=== PATIENT | female | born 1980 | race Caucasian/White ===

== ENCOUNTER 2020-09-11 11:05 | Outpatient (CLI) | payer MEDICARE, SELFPAY ==
[2020-09-11 11:24] LABS: Basophils Absolute Auto 0.09 K/mm3 (0.00-0.10); Basophils Percent Auto 0.9 % (0.0-1.0); Eosinophils Absolute Auto 0.44 K/mm3 (0.02-0.50); Eosinophils Percent Auto 4.5 % (1.0-6.0); Hemoglobin 13.6 g/dL (12.0-15.0); Immature Granulocyte Absolute 0.07 K/mm3 (0.00-0.00); Immature Granulocyte Percent A 0.7 % (0.0-0.0); Lymphocytes Absolute Auto 3.59 K/mm3 (1.10-4.50); Lymphocytes Percent Auto 36.4 % (18.0-42.0); Mean Corpuscular HGB Conc 33.2 g/dL (32.0-36.0); Mean Corpuscular Hemoglobin 29.3 pg (27.0-31.0); Mean Corpuscular Volume 88.4 fL (78.0-102.0); Mean Platelet Volume 10.4 fl (9.2-11.8); Monocytes Absolute Auto 0.65 K/mm3 (0.10-0.90); Monocytes Percent Auto 6.6 % (2.0-11.0); Neutrophils Percent Auto 50.9 % (50.0-70.0); Platelet Count Result 335 K/mm3 (150-420); Red Blood Count 4.64 M/mm3 (4.20-5.40); Red Cell Distribution Width 13.3 % (11.6-14.4); White Blood Count 9.9 K/mm3 (4.8-10.8)
[2020-09-11 12:34] LABS: Alanine Aminotransferase 18 U/L (14-59); Albumin Level 3.5 g/dL (3.4-5.0); Alkaline Phosphatase 57 U/L (46-116); Anion Gap 9 mmol/L (8-16); Aspartate Amino Transferase 10 U/L (15-37); Bilirubin,Total 0.2 mg/dL (0.00-1.00); Blood Urea Nitrogen 11 mg/dL (7-18); Calcium 9.1 mg/dL (8.5-10.1); Carbon Dioxide 26 mmol/L (21-32); Chloride 105 mmol/L (98-108); Estimated Glomerular Filt Rate > 60; Free T4 Free Thyroxine 0.61 ng/dL (0.76-1.46); Glucose 97 mg/dL (70-99); Osmolality Calculated 289 mOsm/kg (285-295); Potassium 4.6 mmol/L (3.5-5.1); Sodium 140 mmol/L (136-145); Thyroid Stimulating Hormone 0.56 uIU/mL (0.36-3.74); Total Protein 7.2 g/dL (6.4-8.2)
[2020-09-13 11:27] LABS: Lithium 0.45 mmol/L (0.60-1.20)
== END 2020-09-11 11:06 | disposition home or self-care (01) ==
DX: F31.9 Bipolar disorder, unspecified (principal); Z79.899 Other long term (current) drug therapy
CPT/HCPCS: 36415; 80053; 80178; 84439; 84443; 85025

== ENCOUNTER 2022-01-27 12:38 | Outpatient (CLI) | payer OTHER, SELFPAY ==
[2022-01-27 13:03] LABS: Basophils Absolute Auto 0.09 K/mm3 (0.00-0.10); Basophils Percent Auto 0.7 % (0.0-1.0); Eosinophils Absolute Auto 0.67 K/mm3 (0.02-0.50); Eosinophils Percent Auto 4.9 % (1.0-6.0); Hematocrit 40.3 % (35.0-49.0); Hemoglobin 13.6 g/dL (12.0-15.0); Immature Granulocyte Absolute 0.06 K/mm3 (0.00-0.00); Immature Granulocyte Percent A 0.4 % (0.0-0.0); Lymphocytes Absolute Auto 4.23 K/mm3 (1.10-4.50); Lymphocytes Percent Auto 30.9 % (18.0-42.0); Mean Corpuscular HGB Conc 33.7 g/dL (32.0-36.0); Mean Corpuscular Hemoglobin 29.1 pg (27.0-31.0); Mean Corpuscular Volume 86.1 fL (78.0-102.0); Mean Platelet Volume 10.8 fl (9.2-11.8); Monocytes Absolute Auto 0.94 K/mm3 (0.10-0.90); Monocytes Percent Auto 6.9 % (2.0-11.0); Neutrophils Absolute Auto 7.7 K/mm3 (1.7-7.2); Neutrophils Percent Auto 56.2 % (50.0-70.0); Platelet Count Result 318 K/mm3 (150-420); Red Blood Count 4.68 M/mm3 (4.20-5.40); Red Cell Distribution Width 12.9 % (11.6-14.4); White Blood Count 13.7 K/mm3 (4.8-10.8)
[2022-01-27 13:12] LABS: Hemoglobin A1C 5.5 % (<5.7)
[2022-01-27 14:43] LABS: Cholesterol 157 mg/dL (0-200); Free T4 Free Thyroxine 0.79 ng/dL (0.76-1.46); HDL Direct 63 mg/dL (40-60); LDL Cholesterol Calculated 75 mg/dL (<130); Thyroid Stimulating Hormone 1.66 uIU/mL (0.36-3.74); Triglycerides 93 mg/dL (0-150); Vitamin B12 813 pg/mL (193-986)
[2022-01-30 11:31] LABS: Valproic Acid 72.2 mg/L (50.0-100.0)
[2022-01-30 15:11] LABS: Vitamin D 25 Hydroxy 20 ng/mL (30-100)
== END 2022-01-27 12:39 | disposition home or self-care (01) ==
LOC: CHSLAB 12:43
DX: F31.9 Bipolar disorder, unspecified (principal); Z79.899 Other long term (current) drug therapy
CPT/HCPCS: 36415; 80061; 80164; 80178; 82306; 82607; 83036; 84439; 84443; 85025

== ENCOUNTER 2023-06-15 12:16 | Emergency (ER) | payer OTHER, SELFPAY ==
[2023-06-15 12:16] VITALS: BP 104/67; PULSE 83; RESP 18; TEMP 36.7; O2SAT 98
--- NOTE | 2023-06-15 12:26 | ED.EAR ---
HPI - Ear Problem General Chief complaint: Ear Stated complaint: EAR PAIN Time Seen by Provider: 06/15/23 12:19 Source: patient Mode of arrival: ambulatory Limitations: no limitations History of Present Illness HPI Narrative: 42 years old white female came to the emergency room by private car complaining of left ear pain that started 3 days ago. Patient using Q-tip to clean her ear all the time. Patient denies history of diabetes or hypertension, history of bipolar and insomnia, tobacco use. She denies drinking or using drugs. Patient denies any fever, chills, nausea, vomiting, headache. Related Data Home Medications Medication Instructions Recorded Confirmed quetiapine 400 mg tablet (Seroquel) 400 mg PO BID 11/11/20 06/15/23 trazodone 100 mg tablet 100 mg PO QHS PRN Insomnia 11/11/20 06/15/23 clonidine HCl 0.1 mg tablet 0.1 mg PO TID 06/15/23 06/15/23 deutetrabenazine 6 mg tablet 6 mg PO DAILY 06/15/23 06/15/23 (Austedo) gabapentin 300 mg capsule 300 mg PO DAILY 06/15/23 06/15/23 Allergies Allergy/AdvReac Type Severity Reaction Status Date / Time Penicillins Allergy Anaphylaxis Verified 06/15/23 12:19 Review of Systems Review of Systems: All systems reviewed & are unremarkable except as noted in HPI and below Exam Narrative: General appearance: Well-developed, well-nourished Skin: Normal color Head: Normocephalic, nontraumatic Eyes: Clear conjunctiva ENT: Oropharynx normal,, nose normal , left ear exam showed severely narrowed ear canal, tender tragus, unable to check the tympanic membrane because of the pain and tightness of the ear canal. No surrounding lymphadenopathy, no erythema or discharge Neck: Supple, nontender Chest and respiratory: Airway patent, no respiratory distress, no accessory muscle use Heart: Regular rate/rhythm Abdomen: Soft, nontender, no organomegaly, quiet bowel sounds Vascular: Normal peripheral pulses, normal capillary refill. Musculoskeletal: Normal range of motion, nontender back Neurologic: Alert and oriented ?3, [employer] is normal as tested, no gross motor deficit Course Vital Signs Vital signs: Vital Signs Temperature 36.7 C 06/15/23 12:16 Pulse Rate 83 06/15/23 12:16 Respiratory Rate 18 06/15/23 12:16 Blood Pressure 104/67 06/15/23 12:16 Pulse Oximetry 98 06/15/23 12:16 Oxygen Delivery Room Air 06/15/23 12:16 Temperature 36.7 C 06/15/23 12:16 Pulse Rate 83 06/15/23 12:16 Respiratory Rate 18 06/15/23 12:16 Blood Pressure 104/67 06/15/23 12:16 Pulse Oximetry 98 06/15/23 12:16 Oxygen Delivery Room Air 06/15/23 12:16 Procedures Other Procedure Procedure 1: Other Procedure: wick placement in the left ear canal, followed by Cortisporin ear drops, patient tolerated the procedure well Medical Decision Making MDM Narrative Medical decision making narrative: otitis externa secondary to using Q-tip constantly after taking shower. Patient reports having similar symptoms years ago required IV antibiotic in the hospital because outpatient failed. Patient is not diabetic. In the ED patient received a wick and I did place it inside the ear canal, and Cortisporin ear drops . Patient received ibuprofen 800 mg and [place] 5/324 mg p.o. prior to discharge. Patient to follow-up with ENT/ Dr. Velasco for further evaluation. Medical Records Medical records reviewed: Yes I reviewed the external patient's medical records. Vital Signs Vital Signs: Vital Signs Temperature 36.7 C 06/15/23 12:16 Pulse Rate 83 06/15/23 12:16 Respiratory Rate 18 06/15/23 12:16 Blood Pressure 104/67 06/15/23 12:16 Pulse Oximetry 98 06/15/23 12:16
[2023-06-15] MEDS: HYDROcodone/acetaminophen (*CRX) 5-325 MG TABLET 1 TAB PO (12:35)
[2023-06-15] MEDS: IBUPROFEN 400 MG TABLET 800 MG PO (12:36)
[2023-06-15] MEDS: NEOMYCIN/POLYMYXIN/HYDROCORT OT SUSP 10 ML BTL (*BKC) 3 DROP EACH EAR (12:37)
== END 2023-06-15 13:08 | disposition home or self-care (01) ==
LOC: CHSED 12:58
PROVIDERS: Emergency Provider Emergency Medicine
DX: H60.502 Unspecified acute noninfective otitis externa, left ear (principal); E11.9 Type 2 diabetes mellitus without complications; I10 Essential (primary) hypertension; Z79.899 Other long term (current) drug therapy
CPT/HCPCS: 99283; A9270